=== PATIENT | male | born 1965 | race Caucasian/White ===

== ENCOUNTER → 2017-02-07 | Outpatient (CLI) | payer OTHER, MEDICARE | LOC: CT 14:17 | DX: J98.11 Atelectasis (principal) | CPT/HCPCS: 36415; 71260; 82565; 84520; J7050; Q9962 ==

== ENCOUNTER → 2021-04-05 | Outpatient (CLI) | payer BC, MEDICARE ==
[~2021-04-05] MED LIST: IBUPROFEN600 MG PO; NORFLEX 100 MG100 MG PO; Voltaren Gel 1% TOP
== END ==
LOC: RT 10:04
DX: I25.10 Atherosclerotic heart disease of native coronary artery without angina pectoris (principal); I10 Essential (primary) hypertension; R00.1 Bradycardia, unspecified
CPT/HCPCS: 93005